=== PATIENT | male | born 1965 | race Caucasian/White ===

== ENCOUNTER 2018-06-05 15:58 | Emergency (ER) | payer MEDICAID ==
[~2018-06-05] VITALS: Ht 172.7 cm; Wt 75.0 kg
[~2018-06-05 15:58] MED LIST: FURO40TA6 PO; PANT40TA5 PO; SPIR100T PO
--- NOTE | 2018-06-05 16:06 | NUR ---
JOSELYN LOPEZ STARTED FOR PT. 2 WARM BLANKETS APPLIED.
--- NOTE | 2018-06-05 16:13 | NUR ---
REPORT TO BERNARDO BOND.
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
[2018-06-05 16:30] LABS: BASOPHILS # (AUTO) 0.04 x10^3/uL (0-0.1); BASOPHILS % (AUTO) 0 % (0-1); EOSINOPHILS # (AUTO) 0.17 x10^3/uL (0-0.4); EOSINOPHILS % (AUTO) 2 % (1-7); LYMPHOCYTES # (AUTO) 1.77 x10^3/uL (1-3.4); LYMPHOCYTES % (AUTO) 20 % (22-44); MD NO; MEAN CORPUSCULAR HGB CONC 34.2 g/dL (33.2-36.2); MEAN CORPUSCULAR VOLUME 102.3 fL (81-97); MONOCYTES # (AUTO) 0.97 x10^3/uL (0.2-0.8); MONOCYTES % (AUTO) 11 % (2-9); NEUTROPHILS # (AUTO) 5.82 x10^3/uL (1.8-6.8); NEUTROPHILS % (AUTO) 66 % (42-75); PLATELET COUNT 289 x10^3/uL (130-400); RED BLOOD COUNT 3.16 x10^6/uL (4.38-5.82); RED CELL DISTRIBUTION WIDTH 15.3 % (9.4-14.8)
[2018-06-05 16:41] LABS: ALANINE AMINOTRANSFERASE 107 U/L (12-78); ALBUMIN 2.5 g/dL (3.4-5.0); ANION GAP 6 mmol/L (5-15); CALCIUM 8.7 mg/dL (8.5-10.1); CHLORIDE 107 mmol/L (98-107)
[2018-06-05 16:42] LABS: SALICYLATE LEVEL < 1.7 mg/dL (2.8-20.0)
[2018-06-05 16:43] LABS: ALKALINE PHOSPHATASE 157 U/L (45-117); AMPHETAMINE SCREEN, URINE Negative (Negative); BARBITURATE SCREEN, URINE Negative (Negative); BENZODIAZEPINE SCREEN, URINE Positive (Negative); BILIRUBIN,TOTAL 0.9 mg/dL (0.2-1.0); CANNABINOID SCREEN, URINE Negative (Negative); COCAINE SCREEN, URINE Negative (Negative); CREATININE 0.54 mg/dL (0.7-1.3); METHADONE SCREEN, URINE Negative (Negative); OPIATE SCREEN, URINE Negative (Negative); TOTAL PROTEIN 7.9 g/dL (6.4-8.2)
[2018-06-05 16:44] LABS: ACETAMINOPHEN < 2 mcg/mL (10-30)
--- NOTE | 2018-06-05 19:03 | NUR ---
Report to Avtar BOND. Pt remains in bed, NAD.
--- NOTE | 2018-06-05 19:14 | NUR ---
PT BEDSIDE REPORT FROM BERNARDO RN. THIS RN TO ASSUME CARE OF PT. PT AMB W/ STEADY GAIT AND "WOULD LIKE TO GO HOME NOW WITH A TAXI VOUCHER." PT PROVIDED TAXI VOUCHER.
[2018-06-05 19:20] VITALS: BP 153/68
== END 2018-06-05 19:31 | disposition home or self-care (01) ==
LOC: ED 19:25
DX: T68.XXXA Hypothermia, initial encounter (principal); R41.82 Altered mental status, unspecified; F10.221 Alcohol dependence with intoxication delirium; Z71.41 Alcohol abuse counseling and surveillance of alcoholic; X58.XXXA Exposure to other specified factors, initial encounter; Y93.89 Activity, other specified; Y92.89 Other specified places as the place of occurrence of the external cause; Y99.8 Other external cause status
CPT/HCPCS: 36415; 80053; 80307; 80329; 85025; 99283; G0480

== ENCOUNTER 2018-07-14 13:30 | Emergency (ER) | payer MEDICAID ==
--- NOTE | 2018-07-14 13:53 | NUR ---
NA X1
--- NOTE | 2018-07-14 14:04 | NUR ---
NAX2
--- NOTE | 2018-07-14 14:16 | NUR ---
NO ANSWER X 3
== END 2018-07-14 14:18 | disposition left against medical advice (07) ==
LOC: ED 14:12
DX: Z53.21 Procedure and treatment not carried out due to patient leaving prior to being seen by health care provider (principal)

== ENCOUNTER 2018-08-02 02:20 | Emergency (ER) | payer MEDICAID ==
[~2018-08-02] VITALS: Ht 182.9 cm; Wt 80.0 kg
[2018-08-02] MEDS ORDERED: LIDOCAINE-MPF 1%, 5ML ONE ×2 (02:34→04:04)
[2018-08-02] MEDS ORDERED: DIPH,PERTUSS(ACELL),TET VAC/PF 0.5 ML IM-VACC ONE ×2 (02:34→03:00)
[2018-08-02] MEDS ORDERED: LIDOCAINE 2%, 20ML SQ ONE (03:00)
--- NOTE | 2018-08-02 03:40 | NUR ---
TECH AT BEDSIDE FOR WOUND IRRIGATION
[2018-08-02 04:58] VITALS: BP 117/74
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
--- NOTE | 2018-08-02 05:26 | NUR ---
PT HAS BEEN GIVEN A PLETHORA OF BANDAIDS PER HIS REQUEST FOR HIS CHRONIC FEET PAIN. PT REMAINS ORGANIZING HIS BAGS IN HIS ROOM AT THIS TIME. PT ENCOURAGED TO CHECK OUT AT THE DC DESK.
--- NOTE | 2018-08-02 05:30 | NUR ---
PT NOW OUT OF ROOM AFTER MUCH ENCOURAGEMENT AND ASSISTANCE WITH HIS BELONGINGS. PT BROUGHT TO RESTROOM PER REQUEST.
== END 2018-08-02 05:44 | disposition home or self-care (01) ==
LOC: ED 05:42
DX: S81.811A Laceration without foreign body, right lower leg, initial encounter (principal); W26.9XXA Contact with unspecified sharp object(s), initial encounter; Y93.89 Activity, other specified; Y92.830 Public park as the place of occurrence of the external cause; Y99.8 Other external cause status
CPT/HCPCS: 12034; 90715; 99284

== ENCOUNTER 2018-08-12 10:21 | Emergency (ER) | payer MEDICAID ==
[~2018-08-12] VITALS: Ht 157.5 cm; Wt 56.8 kg
[2018-08-12 10:25] VITALS: BP 123/84
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
[2018-08-12] MEDS ORDERED: BACITRACIN ZINC OINT 500U/GM, 0.9 GM ONE (10:44)
--- NOTE | 2018-08-12 11:28 | NUR ---
PT WOUND DRESSED AND PT PROVIDED W/ WOUND DRESSING CHANGE SUPPLIES AND EDUCATED ON HOW TO CHANGE DRESSING AND KEEP IT CLEAN. PT VERBALIZES UNDERSTANDING. MEDICATION ASSISTANCE SHEET PROVIDED FOR PT W/ DC PAPERWORK. BUS PASS PROVIDED.
== END 2018-08-12 11:30 | disposition home or self-care (01) ==
LOC: ED 11:20
DX: S81.812D Laceration without foreign body, left lower leg, subsequent encounter (principal); L03.115 Cellulitis of right lower limb; X58.XXXD Exposure to other specified factors, subsequent encounter
CPT/HCPCS: 99283

== ENCOUNTER 2018-08-14 09:21 | Emergency (ER) | payer MEDICAID ==
[~2018-08-14] VITALS: Ht 175.3 cm; Wt 65.0 kg
[2018-08-14] MEDS ORDERED: SODIUM CHLORIDE FLUSH 10ML SYR IVF ONE (09:30)
[2018-08-14] MEDS ORDERED: AMPICILLIN/SULBACTAM 3 GM in SODIUM CHLORIDE 0.9% 100 ML IV ONE (09:45)
--- NOTE | 2018-08-14 09:59 | NUR ---
PT BIB [facility] FROM [facility]. PT WITH BILATERAL CELLULITIS. PT WAS SEEN HERE. ANTIBIOTICS RX GIVEN TO PT AND PT DID NOT FILL THE PRESCRIPTION. PT WITH ETOH ODOR. PT PLACED ON BP AND CONT. PULSE OXIMETER. ASSESSMENT COMPLETED.
[2018-08-14] MEDS ORDERED: PLEASE ENTER HEIGHT AND WEIGHT MC SCH (10:00)
--- NOTE | 2018-08-14 10:38 | NUR ---
pt given a meal tray.
--- NOTE | 2018-08-14 11:22 | NUR ---
PT UP FOR DISCHARGE. DISCHARGE INSTRUCTIONS GIVEN TO PT.
[2018-08-14 11:55] VITALS: BP 106/62
--- NOTE | 2018-08-14 11:55 | NUR ---
BREAK RN FOR PRIMARY RN RANJIT, PT GIVEN DISCHARGE INSTRUCTIONS, VERBALIZED UNDERSTANDING, HANDOUTS IN HAND. PT PROVIDED TAXI VOUCHER TO [facility] TO GET HIS PRESCRIPTION FILLED DISCUSSED WITH DR. SAENZ. PT ALSO PROVIDED BUS PASS TO GET HIM HOME FROM CLINIC TO GROUP HOME PER PT REQUEST AND MD CARBAJAL. PT AMBULATED TO CHECKOUT DESK WITH STEADY GAIT. VSS AND TOLERATING PO WELL AT DISCHARGE.
== END 2018-08-14 12:26 | disposition home or self-care (01) ==
LOC: ED 10:35
DX: L03.115 Cellulitis of right lower limb (principal); L03.116 Cellulitis of left lower limb; I10 Essential (primary) hypertension
CPT/HCPCS: 96365; 96366; 99283; J0295

== ENCOUNTER 2018-08-16 10:08 | Emergency (ER) | payer MEDICAID ==
[~2018-08-16] VITALS: Ht 182.9 cm; Wt 76.0 kg
[2018-08-16 10:54] LABS: BASOPHILS # (AUTO) 0.05 x10^3/uL (0-0.1); BASOPHILS % (AUTO) 1 % (0-1); EOSINOPHILS # (AUTO) 0.06 x10^3/uL (0-0.4); EOSINOPHILS % (AUTO) 1 % (1-7); LYMPHOCYTES # (AUTO) 1.32 x10^3/uL (1-3.4); LYMPHOCYTES % (AUTO) 19 % (22-44); MD NO; MEAN CORPUSCULAR HEMOGLOBIN 30.9 pg (27.5-34.5); MEAN CORPUSCULAR HGB CONC 33.8 g/dL (33.2-36.2); MEAN CORPUSCULAR VOLUME 91.6 fL (81-97); MEAN PLATELET VOLUME 7.8 fL (7.4-10.4); MONOCYTES # (AUTO) 0.66 x10^3/uL (0.2-0.8); MONOCYTES % (AUTO) 10 % (2-9); NEUTROPHILS # (AUTO) 4.74 x10^3/uL (1.8-6.8); NEUTROPHILS % (AUTO) 69 % (42-75); PLATELET COUNT 127 x10^3/uL (130-400); RED BLOOD COUNT 3.54 x10^6/uL (4.38-5.82); RED CELL DISTRIBUTION WIDTH 15.6 % (9.4-14.8)
--- NOTE | 2018-08-16 11:03 | NUR ---
PT IN US AT THIS TIME
[2018-08-16 11:07] LABS: ALBUMIN 2.5 g/dL (3.4-5.0); ANION GAP 9 mmol/L (5-15); CALCIUM 8.1 mg/dL (8.5-10.1); CHLORIDE 102 mmol/L (98-107); CREATININE 0.43 mg/dL (0.7-1.3)
--- NOTE | 2018-08-16 11:45 | NUR ---
pt returned from us in nad
[2018-08-16] MEDS ORDERED: KETOROLAC 30 MG/1 ML ONE (11:59)
[2018-08-16] MEDS ORDERED: CEFTRIAXONE 1,000 MG ONE (11:59)
[2018-08-16] MEDS ORDERED: CEFTRIAXONE 1,000 MG IM ONE (12:00)
[2018-08-16] MEDS ORDERED: KETOROLAC 30 MG/1 ML IM ONE (12:00)
--- NOTE | 2018-08-16 12:22 | NUR ---
CARE FOR DC ONLY PROVIDE. PT LAYING ON GURNEY. NO IV TO DC. REVIEWED DC INSTRUCTIONS WITH PT, UNDERSTANDING VERBALIZED. PT GIVEN CARE CHEST INFORMATION.
[2018-08-16 12:23] VITALS: BP 142/89
== END 2018-08-16 12:26 | disposition home or self-care (01) ==
LOC: ED 12:20
DX: M25.571 Pain in right ankle and joints of right foot (principal); M25.572 Pain in left ankle and joints of left foot; I10 Essential (primary) hypertension
CPT/HCPCS: 36415; 80048; 82040; 85025; 93970; 96372; 99284; J0696; J1885

== ENCOUNTER 2018-09-04 16:21 | Inpatient (IN) | payer MEDICAID ==
[~2018-09-04] VITALS: Ht 182.9 cm; Wt 72.7 kg
--- NOTE | 2018-09-04 16:48 | NUR ---
PT BIB [facility]. CURRENTLY HOMELESS. C/O BILAT LEG SWELLING AND PAIN 02/06. POOR HISTORIAN, UNAWARE OF MEDICAL HX. DENIES TAKING ANY MEDS. PT ALSO HAS WHITE DISCOLORATION TO R GREAT TOE AND VISIBLE UMBILICAL HERNIA. A&OX4, AMBULATORY.
--- NOTE | 2018-09-04 17:11 | NUR ---
PT TO XR VIA [facility].
[2018-09-04] MEDS ORDERED: ONDANSETRON ODT 4 MG ONE (17:13)
[2018-09-04] MEDS ORDERED: ONDANSETRON ODT 4 MG PO ONE (17:30)
--- NOTE | 2018-09-04 17:45 | NUR ---
PT BACK FROM XR. PT NOW STATES HIS CHIEF COMPLAINT IS NOT BILAT LEG SWELLING BUT ACTUALLY "STOMACH ACHE, N/V/D, SORE THROAT, GREEN LUNG CHUNK, AND CRAMPING TO HANDS & LEGS." ADMITS TO HEAVY DRINKING, STATES, "THEY SAY I HAVE LIVER FAILURE." PT DRY HEAVING. MEDICATED WITH PO ZOFRAN PER ORDERS.
[2018-09-04 17:56] LABS: BASOPHILS # (AUTO) 0.08 x10^3/uL (0-0.1); BASOPHILS % (AUTO) 1 % (0-1); EOSINOPHILS # (AUTO) 0.01 x10^3/uL (0-0.4); EOSINOPHILS % (AUTO) 0 % (1-7); LYMPHOCYTES # (AUTO) 1.42 x10^3/uL (1-3.4); LYMPHOCYTES % (AUTO) 17 % (22-44); MD NO; MEAN CORPUSCULAR HEMOGLOBIN 31.7 pg (27.5-34.5); MEAN CORPUSCULAR HGB CONC 34.1 g/dL (33.2-36.2); MEAN CORPUSCULAR VOLUME 92.8 fL (81-97); MEAN PLATELET VOLUME 7.7 fL (7.4-10.4); MONOCYTES # (AUTO) 0.91 x10^3/uL (0.2-0.8); MONOCYTES % (AUTO) 11 % (2-9); NEUTROPHILS # (AUTO) 5.79 x10^3/uL (1.8-6.8); NEUTROPHILS % (AUTO) 71 % (42-75); PLATELET COUNT 298 x10^3/uL (130-400); RED BLOOD COUNT 4.01 x10^6/uL (4.38-5.82)
[2018-09-04 18:08] LABS: ALANINE AMINOTRANSFERASE 71 U/L (12-78); ALBUMIN 3.1 g/dL (3.4-5.0); ANION GAP 11 mmol/L (5-15); CALCIUM 9.2 mg/dL (8.5-10.1); CHLORIDE 102 mmol/L (98-107); CREATININE 0.66 mg/dL (0.7-1.3)
[2018-09-04 18:13] LABS: ALKALINE PHOSPHATASE 181 U/L (45-117); BILIRUBIN,TOTAL 3.4 mg/dL (0.2-1.0); TOTAL PROTEIN 8.3 g/dL (6.4-8.2)
--- NOTE | 2018-09-04 18:20 | NUR ---
UPDATED PT ON POC. INSTRUCTED PT ON NEED FOR URINE AND STOOL SAMPLE. BSC PROVIDED IN ROOM.
--- NOTE | 2018-09-04 18:59 | NUR ---
PT TO CT VIA [facility].
[2018-09-04] MEDS ORDERED: BENZOCAINE 20% SPRAY 0.5ML ONE (19:14)
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
--- NOTE | 2018-09-04 19:41 | NUR ---
PT PLACED ON CONTACT ISOLATION. BELONGINGS BAGGED UP IN ROOM.
[2018-09-04] MEDS ORDERED: OMNIPAQUE 350 MG/ML, 100ML BOTTLE ONE (19:50)
--- NOTE | 2018-09-04 19:59 | NUR ---
NGT INSERTED AND ATTACHED TO LOW WALL SUCTION PER ORDERS WITH IMMEDIATE RETURN OF STOMACH CONTENTS. ERP WAS IN FOR RE-EVAL.
[2018-09-04] MEDS ORDERED: METRONIDAZOLE PMX 500MG/100ML 100 ML IVPB ONE (20:00)
[2018-09-04] MEDS ORDERED: PIPERACILLIN/TAZO/PMX 3.375GM 50 ML IVPB ONE (20:00)
[2018-09-04] MEDS ORDERED: METRONIDAZOLE PMX 500MG/100ML 100 ML ONE (20:07)
[2018-09-04] MEDS ORDERED: SODIUM CHLORIDE 0.9% 1,000 ML IV ONE (20:19)
[2018-09-04] MEDS ORDERED: SODIUM CHLORIDE FLUSH 10ML SYR IVF PRN (20:30)
[2018-09-04] MEDS ORDERED: MORPHINE SULFATE 4 MG/ML, 1ML IVPush PRN ×3 (20:30→23:30)
[2018-09-04] MEDS ORDERED: ONDANSETRON 2MG/ML, 2ML IVPush PRN ×3 (20:30→23:30)
[2018-09-04] MEDS ORDERED: BUPIVACAINE/PF-EPI 0.5% 1:200K ONE (20:35)
[2018-09-04] MEDS ORDERED: MORPHINE SULFATE 4 MG/ML, 1ML ONE (20:38)
--- NOTE | 2018-09-04 20:52 | NUR ---
PT UPDATED ON POC TO GO TO OR, VERBALIZES UNDERSTANDING. IVF AND ABX INFUSING. PT DECLINES PAIN MEDS AT THIS TIME. REPORTED TO SPECIAL EDUCATION KINDERGARTEN TEACHER.
--- NOTE | 2018-09-04 20:57 | NUR ---
PT TO OR VIA [facility] NOW.
[2018-09-04] MEDS ORDERED: PROPOFOL 10 MG/ML, 20ML ONE (21:00)
[2018-09-04] MEDS ORDERED: SUCCINYLCHOLINE 20 MG/ML, 10ML ONE (21:00)
[2018-09-04] MEDS ORDERED: ROCURONIUM 10 MG/ML,10ML ONE (21:00)
[2018-09-04 21:05] LABS: INTERNATIONAL NORMALIZED RATIO 1.15 (0.93-1.1)
[2018-09-04 21:14] LABS: MICROSCOPIC NOT IND
[2018-09-04 21:20] LABS: CULTURE INDICATED? NO
[2018-09-04] MEDS ORDERED: ENALAPRILAT 1.25 MG/ML, 2ML IVPush PRN (21:30)
[2018-09-04] MEDS ORDERED: THIAMINE 200 MG in DEXTROSE 5% 50 ML IVPB ONE (21:30)
[2018-09-04] MEDS ORDERED: LORazepam 2 MG/ML, 1ML IV PRN ×5 (21:30)
[2018-09-04] MEDS ORDERED: LACTATED RINGERS 1,000 ML IV SCH (21:30)
[2018-09-04] MEDS ORDERED: KETOROLAC 30 MG/1 ML IV PRN (21:30)
[2018-09-04] MEDS ORDERED: FOLIC ACID 5 MG/ML IM ONE (21:30)
[2018-09-04] MEDS ORDERED: LABETALOL 20 MG/4 ML IV PRN (21:30)
[2018-09-04] MEDS ORDERED: PROMETHAZINE 25 MG/ML, 1ML IM PRN (21:30)
[2018-09-04] MEDS ORDERED: SUGAMMADEX 200 MG/2 ML IVPush ONE (21:37)
[2018-09-04] MEDS ORDERED: FENTANYL PF 100 MCG/2ML ONE ×2 (21:44→22:04)
[2018-09-04] MEDS ORDERED: OXYcodone 5 MG/5 ML ORAL.SOL UDC ONE (21:45)
[2018-09-04] MEDS ORDERED: HYDROmorphone 2 MG/ML, 1ML ONE (21:45)
[2018-09-04] MEDS ORDERED: PROMETHAZINE 25 MG/ML, 1ML IV PRN (22:00)
[2018-09-04] MEDS ORDERED: OXYcodone 5 MG/5 ML ORAL.SOL UDC PO PRN (22:00)
[2018-09-04] MEDS ORDERED: DIPHENHYDRAMINE 50 MG/ML, 1ML IVPush PRN (22:00)
[2018-09-04] MEDS ORDERED: LORazepam 2 MG/ML, 1ML IVPush PRN (22:00)
[2018-09-04] MEDS ORDERED: MEPERIDINE/PF 25MG/0.5ML IVPush PRN (22:00)
[2018-09-04] MEDS: HYDROmorphone 1 MG/ML, 1ML VIAL IVPush PRN ×2 (22:08→22:26)
[2018-09-04] MEDS: FENTANYL PF 100 MCG/2ML IV PRN ×2 (22:11→22:21)
[2018-09-05 05:26] LABS: AMPHETAMINE SCREEN, URINE Positive (Negative); BARBITURATE SCREEN, URINE Negative (Negative); BENZODIAZEPINE SCREEN, URINE Negative (Negative); CANNABINOID SCREEN, URINE Negative (Negative); COCAINE SCREEN, URINE Negative (Negative); METHADONE SCREEN, URINE Negative (Negative); OPIATE SCREEN, URINE Positive (Negative)
[2018-09-05 06:24] LABS: BASOPHILS # (AUTO) 0.02 x10^3/uL (0-0.1); BASOPHILS % (AUTO) 0 % (0-1); EOSINOPHILS # (AUTO) 0.24 x10^3/uL (0-0.4); EOSINOPHILS % (AUTO) 3 % (1-7); LYMPHOCYTES # (AUTO) 1.16 x10^3/uL (1-3.4); LYMPHOCYTES % (AUTO) 14 % (22-44); MD NO; MEAN CORPUSCULAR HEMOGLOBIN 31.9 pg (27.5-34.5); MEAN CORPUSCULAR HGB CONC 34.5 g/dL (33.2-36.2); MEAN CORPUSCULAR VOLUME 92.5 fL (81-97); MEAN PLATELET VOLUME 7.7 fL (7.4-10.4); MONOCYTES # (AUTO) 0.84 x10^3/uL (0.2-0.8); MONOCYTES % (AUTO) 10 % (2-9); NEUTROPHILS # (AUTO) 6.25 x10^3/uL (1.8-6.8); NEUTROPHILS % (AUTO) 74 % (42-75); PLATELET COUNT 221 x10^3/uL (130-400); RED BLOOD COUNT 3.31 x10^6/uL (4.38-5.82); RED CELL DISTRIBUTION WIDTH 15.6 % (9.4-14.8)
[2018-09-05 06:32] LABS: ALBUMIN 2.4 g/dL (3.4-5.0); ANION GAP 7 mmol/L (5-15); CALCIUM 7.6 mg/dL (8.5-10.1); CHLORIDE 109 mmol/L (98-107)
[2018-09-05 06:36] LABS: ALANINE AMINOTRANSFERASE 50 U/L (12-78); ALKALINE PHOSPHATASE 132 U/L (45-117); BILIRUBIN,TOTAL 1.9 mg/dL (0.2-1.0); CREATININE 0.47 mg/dL (0.7-1.3); TOTAL PROTEIN 6.3 g/dL (6.4-8.2)
[2018-09-05] MEDS ORDERED: POTASSIUM CHLORIDE 40 MEQ in SODIUM CHLORIDE 0.9% 500 ML IV ONE (08:00)
[2018-09-05 09:49] VITALS: BP 127/52
[2018-09-05 14:00] VITALS: BP 102/65
[2018-09-05] MEDS ORDERED: MAGNESIUM SULFATE PMX 2GM/50ML 50 ML IV ONE (15:00)
[2018-09-05] MEDS: OXYcodone IR 5MG TABLET PO PRN (16:13)
[2018-09-05] MEDS: POTASSIUM CHLORIDE 20 MEQ TAB.ER.PRT PO SCH (17:08)
[2018-09-05 19:05] VITALS: BP 104/68
[2018-09-05] MEDS: LACTATED RINGERS 1,000 ML IV SCH (20:43)
[2018-09-05] MEDS: morphine SULFATE 10 MG/ML, 1ML IVPush PRN (20:57)
[2018-09-06 02:20] VITALS: BP 107/66
[2018-09-06 06:52] VITALS: BP 107/71
[2018-09-06 07:16] LABS: ALANINE AMINOTRANSFERASE 44 U/L (12-78); ALBUMIN 2.3 g/dL (3.4-5.0); ANION GAP 8 mmol/L (5-15); CALCIUM 7.9 mg/dL (8.5-10.1); CHLORIDE 105 mmol/L (98-107)
[2018-09-06 07:18] LABS: ALKALINE PHOSPHATASE 143 U/L (45-117); BILIRUBIN,TOTAL 1.6 mg/dL (0.2-1.0); TOTAL PROTEIN 6.3 g/dL (6.4-8.2)
[2018-09-06] MEDS: POTASSIUM CHLORIDE 20 MEQ TAB.ER.PRT PO SCH ×2 (09:12→16:47)
[2018-09-06] MEDS: LACTATED RINGERS 1,000 ML IV SCH ×2 (09:12→16:47)
[2018-09-06 12:36] VITALS: BP 118/77
[2018-09-06] MEDS: morphine SULFATE 10 MG/ML, 1ML IVPush PRN ×3 (15:23→23:56)
[2018-09-06 16:03] VITALS: BP 105/71
[2018-09-06 19:22] VITALS: BP 118/76
[2018-09-07 01:10] VITALS: BP 111/72
[2018-09-07] MEDS: LACTATED RINGERS 1,000 ML IV SCH ×3 (03:47→23:16)
[2018-09-07 06:36] LABS: BASOPHILS # (AUTO) 0.03 x10^3/uL (0-0.1); BASOPHILS % (AUTO) 0 % (0-1); EOSINOPHILS # (AUTO) 0.15 x10^3/uL (0-0.4); EOSINOPHILS % (AUTO) 2 % (1-7); LYMPHOCYTES # (AUTO) 1.44 x10^3/uL (1-3.4); LYMPHOCYTES % (AUTO) 21 % (22-44); MD NO; MEAN CORPUSCULAR HEMOGLOBIN 31.2 pg (27.5-34.5); MEAN CORPUSCULAR HGB CONC 33.3 g/dL (33.2-36.2); MEAN CORPUSCULAR VOLUME 93.5 fL (81-97); MONOCYTES # (AUTO) 0.81 x10^3/uL (0.2-0.8); MONOCYTES % (AUTO) 12 % (2-9); NEUTROPHILS # (AUTO) 4.61 x10^3/uL (1.8-6.8); NEUTROPHILS % (AUTO) 66 % (42-75); PLATELET COUNT 215 x10^3/uL (130-400); RED BLOOD COUNT 3.48 x10^6/uL (4.38-5.82); RED CELL DISTRIBUTION WIDTH 15.1 % (9.4-14.8)
[2018-09-07 06:45] LABS: CHLORIDE 108 mmol/L (98-107)
[2018-09-07 06:50] LABS: ALANINE AMINOTRANSFERASE 42 U/L (12-78); ALBUMIN 2.2 g/dL (3.4-5.0); ALKALINE PHOSPHATASE 149 U/L (45-117); ANION GAP 7 mmol/L (5-15); BILIRUBIN,TOTAL 0.7 mg/dL (0.2-1.0); CALCIUM 8.4 mg/dL (8.5-10.1); CREATININE 0.37 mg/dL (0.7-1.3); TOTAL PROTEIN 6.7 g/dL (6.4-8.2)
[2018-09-07 07:30] VITALS: BP 116/78
[2018-09-07] MEDS: POTASSIUM CHLORIDE 20 MEQ TAB.ER.PRT PO SCH ×2 (09:56→16:20)
[2018-09-07 12:35] VITALS: BP 129/86
[2018-09-07] MEDS: OXYcodone IR 5MG TABLET PO PRN ×3 (13:40→21:43)
[2018-09-07 17:43] VITALS: BP 124/76
[2018-09-07 19:21] VITALS: BP 118/84
[2018-09-07] MEDS: AMOXICILLIN/CLAV 875-125MG TABLET PO SCH (20:08)
[2018-09-08] VITALS: BP 113/69
[2018-09-08] MEDS: OXYcodone IR 5MG TABLET PO PRN ×3 (02:44→19:56)
[2018-09-08 04:50] LABS: ALANINE AMINOTRANSFERASE 44 U/L (12-78); ALBUMIN 2.5 g/dL (3.4-5.0); ANION GAP 8 mmol/L (5-15); CALCIUM 8.5 mg/dL (8.5-10.1); CHLORIDE 106 mmol/L (98-107); CREATININE 0.49 mg/dL (0.7-1.3)
[2018-09-08 04:52] LABS: ALKALINE PHOSPHATASE 154 U/L (45-117); BILIRUBIN,TOTAL 0.7 mg/dL (0.2-1.0); TOTAL PROTEIN 7.1 g/dL (6.4-8.2)
[2018-09-08 07:33] VITALS: BP 110/70
[2018-09-08] MEDS: AMOXICILLIN/CLAV 875-125MG TABLET PO SCH ×2 (07:52→19:56)
[2018-09-08] MEDS: POTASSIUM CHLORIDE 20 MEQ TAB.ER.PRT PO SCH ×2 (07:52→16:15)
[2018-09-08] MEDS: LACTATED RINGERS 1,000 ML IV SCH ×2 (09:09→20:00)
[2018-09-08] MEDS ORDERED: OMNIPAQUE 350 MG/ML, 100ML BOTTLE ONE (09:49)
[2018-09-08 13:40] VITALS: BP 121/80
[2018-09-08 18:41] VITALS: BP 115/78
[2018-09-09 01:02] VITALS: BP 116/68
[2018-09-09] MEDS: OXYcodone IR 5MG TABLET PO PRN ×2 (01:25→13:19)
[2018-09-09] MEDS: LACTATED RINGERS 1,000 ML IV SCH (05:39)
[2018-09-09 07:10] VITALS: BP 117/69
[2018-09-09] MEDS: AMOXICILLIN/CLAV 875-125MG TABLET PO SCH ×2 (08:18→19:52)
[2018-09-09 12:27] VITALS: BP 117/80
--- NOTE | 2018-09-09 15:00 | NUR ---
NURSING ACTIVITY SHEET SET UP FOR PATIENT REVIEWED WITH BOTH PATIENT AND RN. POSTED IN ROOM. EXERCISE HANDOUT GIVEN TO PATIENT. 1. UP IN CHAIR FOR ALL MEALS. 2. AMBULATE WITH NURSING STAFF DAILY. 3. EXERCISES 3X'S A DAY: ANKLE PUMPS, QUAD SETS, GLUT SETS, HEEL SLIDES, CALF STRETCH WITH BEDSHEET Addendum: 09/09/18 at 1523 by ERWIN WELLER PTA Amended: Links added.
[2018-09-09 18:44] VITALS: BP 106/69
[2018-09-10 00:42] VITALS: BP 119/74
[2018-09-10 08:30] VITALS: BP 116/72
[2018-09-10] MEDS: ENOXAPARIN 40 MG/0.4 ML SQ SCH (09:03)
[2018-09-10] MEDS: AMOXICILLIN/CLAV 875-125MG TABLET PO SCH ×2 (09:03→20:23)
[2018-09-10 14:15] VITALS: BP 112/72
[2018-09-10 18:56] VITALS: BP 139/62
[2018-09-11 02:35] VITALS: BP 111/73
[2018-09-11 07:20] VITALS: BP 114/77
[2018-09-11] MEDS: AMOXICILLIN/CLAV 875-125MG TABLET PO SCH ×2 (08:36→21:00)
[2018-09-11] MEDS: OXYcodone IR 5MG TABLET PO PRN ×2 (08:37→16:35)
[2018-09-11] MEDS: ENOXAPARIN 40 MG/0.4 ML SQ SCH (08:37)
[2018-09-11 13:28] VITALS: BP 110/72
[2018-09-11 21:38] VITALS: BP 104/66
[2018-09-12] MEDS: OXYcodone IR 5MG TABLET PO PRN ×3 (00:20→15:44)
[2018-09-12 03:25] VITALS: BP 94/59
[2018-09-12 07:30] VITALS: BP 112/68
[2018-09-12] MEDS: ENOXAPARIN 40 MG/0.4 ML SQ SCH (08:08)
[2018-09-12] MEDS: AMOXICILLIN/CLAV 875-125MG TABLET PO SCH ×2 (08:09→22:12)
[2018-09-12 12:15] VITALS: BP 109/76
[2018-09-12] MEDS ORDERED: MAGNESIUM HYDROXIDE 8%, 30ML UDC PO PRN (17:00)
[2018-09-12 19:30] VITALS: BP 100/72
[2018-09-12] MEDS: GABAPENTIN 100 MG CAPSULE PO SCH (22:12)
[2018-09-12] MEDS: DOCUSATE 100 MG CAPSULE PO SCH (22:12)
[2018-09-13 00:38] VITALS: BP 109/69
[2018-09-13] MEDS: GABAPENTIN 100 MG CAPSULE PO SCH ×3 (07:10→21:28)
[2018-09-13] MEDS: ENOXAPARIN 40 MG/0.4 ML SQ SCH (07:34)
[2018-09-13 08:41] VITALS: BP 97/64
[2018-09-13] MEDS: AMOXICILLIN/CLAV 875-125MG TABLET PO SCH ×2 (08:55→21:28)
[2018-09-13] MEDS: DOCUSATE 100 MG CAPSULE PO SCH ×2 (08:55→21:28)
[2018-09-13 14:44] VITALS: BP 114/63
[2018-09-13 20:20] VITALS: BP 109/71
[2018-09-13] MEDS: OXYcodone IR 5MG TABLET PO PRN (21:36)
[2018-09-14 01:51] VITALS: BP 103/58
[2018-09-14] MEDS: GABAPENTIN 100 MG CAPSULE PO SCH (05:40)
[2018-09-14 07:59] VITALS: BP 94/55
[2018-09-14] MEDS: ENOXAPARIN 40 MG/0.4 ML SQ SCH (08:00)
[2018-09-14] MEDS ORDERED: AMOX1TAB12 PO (08:28)
[2018-09-14] MEDS: AMOXICILLIN/CLAV 875-125MG TABLET PO SCH (08:40)
[2018-09-14] MEDS: DOCUSATE 100 MG CAPSULE PO SCH (08:40)
[2018-09-14] MEDS ORDERED: DOCU-131 PO (09:28)
[2018-09-14] MEDS ORDERED: VARE0.5T PO (09:29)
[2018-09-14] MEDS ORDERED: VARENICLINE 0.5MG TABLET PO SCH (09:30)
== END 2018-09-14 10:20 | disposition home or self-care (01) | DRG 354 ==
LOC: ED 18:33 → 4WST 20:19 → 4NOR 09-07 17:34 → DCLOUNGE 09-14 09:55
PROVIDERS: ADMIT Family Medicine; ATTEND Family Medicine
PROC: 0DH67UZ Insertion of Feeding Device into Stomach, Via Natural or Artificial Opening (ICD-10-PCS; 2018-09-04)
PROC: 0WUF0JZ Supplement Abdominal Wall with Synthetic Substitute, Open Approach (ICD-10-PCS; principal; 2018-09-04 21:00)
DX: K43.6 Other and unspecified ventral hernia with obstruction, without gangrene (principal); E44.1 Mild protein-calorie malnutrition; L03.311 Cellulitis of abdominal wall; K70.9 Alcoholic liver disease, unspecified; F10.20 Alcohol dependence, uncomplicated; B85.2 Pediculosis, unspecified; K74.60 Unspecified cirrhosis of liver; D64.9 Anemia, unspecified; E83.42 Hypomagnesemia; E87.6 Hypokalemia; F17.210 Nicotine dependence, cigarettes, uncomplicated; G89.29 Other chronic pain; I10 Essential (primary) hypertension; Z59.0 Homelessness; Z71.6 Tobacco abuse counseling; Z68.21 Body mass index [BMI] 21.0-21.9, adult; Z78.9 Other specified health status
CPT/HCPCS: 36415; 74018; 74022; 74177; 80053; 80074; 80307; 81003; 82962; 83605; 83690; 83735; 83880; 84100; 85025; 85610; 85730; 87040; 88302; 93005; 96374; 99285; G0378; J1650; J1885; J2543; J2704; J3010; J3411; J3480; Q0162; Q9967; C1781; J0330; J1170; J2270; J3475; J3490; J7030; J7040; J7120

== ENCOUNTER 2018-09-28 01:33 | Emergency (ER) | payer MEDICAID ==
[~2018-09-28] VITALS: Ht 182.9 cm; Wt 60.5 kg
[~2018-09-28 01:33] MED LIST changes: +AMOX1TAB12 PO; +DOCU-131 PO; +VARE0.5T PO
[2018-09-28] MEDS ORDERED: MORPHINE SULFATE 4 MG/ML, 1ML IVPush PRN (02:00)
[2018-09-28] MEDS ORDERED: SODIUM CHLORIDE FLUSH 10ML SYR IVF ONE (02:00)
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
[2018-09-28 02:16] LABS: BASOPHILS # (AUTO) 0.03 x10^3/uL (0-0.1); BASOPHILS % (AUTO) 0 % (0-1); EOSINOPHILS % (AUTO) 1 % (1-7); LYMPHOCYTES # (AUTO) 3.09 x10^3/uL (1-3.4); LYMPHOCYTES % (AUTO) 41 % (22-44); MD NO; MEAN CORPUSCULAR HGB CONC 33.2 g/dL (33.2-36.2); MEAN CORPUSCULAR VOLUME 93.4 fL (81-97); MEAN PLATELET VOLUME 8.4 fL (7.4-10.4); MONOCYTES # (AUTO) 0.76 x10^3/uL (0.2-0.8); MONOCYTES % (AUTO) 10 % (2-9); NEUTROPHILS # (AUTO) 3.48 x10^3/uL (1.8-6.8); NEUTROPHILS % (AUTO) 47 % (42-75); PLATELET COUNT 237 x10^3/uL (130-400)
[2018-09-28 02:25] LABS: ALANINE AMINOTRANSFERASE 54 U/L (12-78); ANION GAP 8 mmol/L (5-15); CALCIUM 8.4 mg/dL (8.5-10.1); CHLORIDE 112 mmol/L (98-107); CREATININE 0.55 mg/dL (0.7-1.3)
--- NOTE | 2018-09-28 02:26 | NUR ---
ct pending lab/creatine.
[2018-09-28 02:29] LABS: ALKALINE PHOSPHATASE 137 U/L (45-117); BILIRUBIN,TOTAL 0.3 mg/dL (0.2-1.0); TOTAL PROTEIN 7.7 g/dL (6.4-8.2)
--- NOTE | 2018-09-28 02:43 | NUR ---
PT. TO CT VIA GURNEY. PT. VOIDED ABOUT 400 ML OF CLEAR YELLOW URINE VIA URINAL.
[2018-09-28] MEDS ORDERED: OMNIPAQUE 350 MG/ML, 100ML BOTTLE ONE (03:06)
--- NOTE | 2018-09-28 03:08 | NUR ---
PT. RESTING ON GURNEY WITH EYES CLOSED. NADN. VS UPDATED. SAFETY MEASURES OBSERVED.
--- NOTE | 2018-09-28 03:52 | NUR ---
INCENTIVE SPIROMETER AND TEACHING PROVIDED TO PT. PT. ABLE TO DEMONSTRATE PROPER USE OF THIS. PT. CHART UP FOR RECHECK BY NAVA.
[2018-09-28 03:53] VITALS: BP 91/61
[2018-09-28] MEDS ORDERED: IBUPROFEN 600 MG TABLET ONE (04:12)
[2018-09-28] MEDS ORDERED: IBUPROFEN 600 MG TABLET PO ONE (04:30)
== END 2018-09-28 04:38 | disposition home or self-care (01) ==
LOC: ED 02:13
DX: S22.41XA Multiple fractures of ribs, right side, initial encounter for closed fracture (principal); R07.89 Other chest pain; F10.20 Alcohol dependence, uncomplicated; I10 Essential (primary) hypertension; Z72.9 Problem related to lifestyle, unspecified; Y04.8XXA Assault by other bodily force, initial encounter; Y93.89 Activity, other specified; Y92.410 Unspecified street and highway as the place of occurrence of the external cause; Y99.8 Other external cause status
CPT/HCPCS: 36415; 71260; 74177; 80053; 80307; 85025; 93005; 99284; Q9967

== ENCOUNTER 2018-09-28 16:14 | Emergency (ER) | payer MEDICAID ==
[~2018-09-28] VITALS: Ht 182.9 cm; Wt 75.9 kg
[2018-09-28 16:20] VITALS: BP 132/89
--- NOTE | 2018-09-28 16:58 | NUR ---
pt arrives to ED seeking suture removal, however once in room, pt states sutures had been removed this am. wound examined by edpa. pt requests lotion and meal. pt provided with lotion and crackers, cheese, peanut butter and milk. pt a&o, resps even and unlabored. pt amb to dc desk with steady gait, no complaint at dc.
== END 2018-09-28 17:00 ==
LOC: ED 16:39
DX: Z48.01 Encounter for change or removal of surgical wound dressing (principal); I10 Essential (primary) hypertension
CPT/HCPCS: 99281

== ENCOUNTER 2018-10-26 10:30 | Emergency (ER) | payer MEDICAID ==
[~2018-10-26] VITALS: Ht 182.9 cm; Wt 76.5 kg
[2018-10-26 10:36] VITALS: BP 122/78
--- NOTE | 2018-10-26 11:32 | NUR ---
PATIENT PROVIDED LOTION, CALAMINE LOTION, AND TOOTHBRUSH/TOOTHPASTE TO HELP WITH HYGIENE PER PATIENT REQUEST.
--- NOTE | 2018-10-26 11:49 | NUR ---
Patient/Caregiver given discharge instructions and they have confirmed that they understand the instructions. Patient ambulatory with steady gait.
== END 2018-10-26 11:51 | disposition home or self-care (01) ==
LOC: ED 11:11
DX: B35.6 Tinea cruris (principal); F17.200 Nicotine dependence, unspecified, uncomplicated; I10 Essential (primary) hypertension
CPT/HCPCS: 99282